=== PATIENT | male | born 1950 | race Caucasian/White ===

== ENCOUNTER 2021-05-04 12:28 | Observation (INO) ==
--- NOTE | 2021-05-04 12:50 | Emergency Department Note ---
History of Present Illness General Chief complaint: Chest Pain Stated complaint: CHEST PAIN, LEFT ARM PAIN, HEADACHE Time Seen by Provider: 05/04/21 12:39 History of Present Illness This is a 71-year-old male that presents to the emergency department via private vehicle accompanied by with complaints of "chest pain, arm pain, headache". The patient notes that earlier today just before noon time he was returning from the store where he was buying lottery tickets. Upon returning home he notes that his left arm went "numb" and he developed a headache followed by left-sided chest pain. When describing the numbness in the left arm he notes it is more of an ache sensation and it was not truly numb. He did not have any movement issues or weakness. No speech troubles. He states that the episode lasted maybe 10 minutes and much of his symptoms have resolved except he is now left with a 2/10 left-sided chest pain. Chest pain is much improved compared to earlier today. He notes a history of double bypass in 2000 performed at [facility]. No [place] history. He does note a history of diabetes type 2, hypertension, hyperlipidemia. He did have a baby aspirin this morning. He denies any fevers or chills. Home Medications Medication Instructions Recorded Confirmed Type amlodipine 5 mg tablet 5 mg PO QAM 06/17/18 05/04/21 History aspirin 81 mg tablet,delayed 81 mg PO QAM 06/17/18 05/04/21 History release atenolol 25 mg tablet 25 mg PO QAM 06/17/18 05/04/21 History clonazepam 1 mg tablet 1 mg PO QPM 06/17/18 05/04/21 History glipizide 5 mg tablet 5 mg PO BID 06/17/18 05/04/21 History lisinopril 5 mg tablet 5 mg PO QAM 06/17/18 05/04/21 History metformin 1,000 mg tablet 1,000 mg PO BID 06/17/18 05/04/21 History rosuvastatin 20 mg tablet 20 mg PO QAM 06/17/18 05/04/21 History empagliflozin 25 mg tablet 25 mg PO QAM 05/04/21 05/04/21 History levothyroxine 25 mcg tablet 25 mcg PO DAILYBB 05/04/21 05/04/21 History Allergies Allergy/AdvReac Type Severity Reaction Status Date / Time oxycodone [From OxyContin] AdvReac Unknown Unverified 05/04/21 13:19 Past Med/Surg History Medical History (Updated 05/04/21 @ 17:54 by Andi Fontana PA-C) Diabetes HTN (hypertension) Surgical History Hx of CABG Social History Smoking Status: Never smoker Hx Alcohol Use: No marital status: current occupational status: retired Feels Safe at Home: Yes Review of Systems A total of 10 systems reviewed and were otherwise negative Physical Exam Vital Signs Vital Signs - 24 hr 05/04/21 12:31 05/04/21 13:04 05/04/21 13:22 Temperature 36.2 C L Temperature Source Temporal Artery Scan Pulse Rate 81 60 Pulse Rate from SpO2 Sensor Respiratory Rate 18 18 Respiratory Effort / Characteristics Non-Labored Respiratory Depth Normal Respiratory Pattern Regular Blood Pressure 174/81 H 167/73 H Blood Pressure Mean 112 104 Blood Pressure Position Sitting Pulse Oximetry 95 96 Oxygen Delivery Method Room Air Room Air Room Air Oxygen Flow Rate 0 Fraction of Inspired Oxygen 95 Sepsis Recent Fever Within 48 Hours No Sepsis New/Unexplained Change in Mental Status No Sepsis Action Taken by Nursing No Action Required 05/04/21 13:30 Temperature Temperature Source Pulse Rate 62 Pulse Rate from SpO2 Sensor 62 Respiratory Rate 16 Respiratory Effort / Characteristics Respiratory Depth Respiratory Pattern Blood Pressure 123/65 Blood Pressure Mean 84 Blood Pressure Position Pulse Oximetry 93 Oxygen Delivery Method Oxygen Flow Rate Fraction of Inspired Oxygen Sepsis Recent Fever Within 48 Hours Sepsis New/Unexplained Change in Mental Status Sepsis Action Taken by Nursing VITAL SIGNS - Vital signs and nursing notes were reviewed. Hypertensive, otherwi se stable. GENERAL - 71-year-old male appearing his stated age who is in no acute distress. Communicates well with provider and answers questions appropriately. SKIN - Without rashes. HEAD - NC/AT. EYES - PERRL with EOMI bilaterally. Sclera anicteric. EARS - No deformities of external structures noted on gross examination bilaterally. No pain elicited with palpation of the tragus bilaterally. External auditory canals without discharge or otorrhea. Tympanic membranes pearly pritchett without retraction or bulging. No fluid or purulent material visualized behind the TM. Handle of malleus, umbo, cone of light, pars tensa/flaccid all easily visualized. NOSE - Midline and without cyanosis. No epistaxis or purulent drainage noted. Septum midline without deviation or septal hematoma noted. MOUTH/OROPHARYNX - Without perioral cyanosis. NECK - Neck with FROM. No nuchal rigidity. LUNGS - Chest wall symmetric without accessory muscle use, intercostals retractions, or central cyanosis. Normal vesicular breath sounds CTA B/L. No wheezes, rales, or rhonchi appreciated. CARDIAC - RRR with S1/S2. No murmur, rubs, or gallops appreciated. ABDOMEN - Abdominal contour normal without pulsations or visible masses. BS normoactive all four quadrants. No tenderness, palpable masses, hepatosplenomegaly, or ascites noted. EXTREMITIES - No clubbing or peripheral cyanosis. +5/5 strength noted in UE/LE bilaterally. No deficits or weakness. NEUROLOGIC - Cranial nerves II through XII grossly intact. PSYCH - A&Ox3 and cooperates fully with examiner. Pt is very pleasant and interacts well with examiner. Course Administered Medications Insulin Aspart (Insulin Aspart Per Unit) 0 units SC ACHS [facility] Stop: 06/03/21 16:29 Last Admin: 05/04/21 18:03 Dose: Not Given Documented by: [id number] Cosigned by: [id number] Discontinued Medications Aspirin (Aspirin Chew 324 Mg) 243 mg PO NOW STA Stop: 05/04/21 12:53 Last Admin: 05/04/21 13:18 Dose: 243 mg Documented by: [id number] Nitroglycerin (Nitroglycerin Sl 0.4 Mg/Tab Tab) 0.4 mg SL NOW STA Stop: 05/04/21 12:53 Last Admin: 05/04/21 13:18 Dose: 0.4 mg Documented by: [id number] Medical Decision Making Laboratory Data Result diagrams: 05/04/21 13:07 05/04/21 13:07 Lab Results 05/04/21 05/04/21 05/04/21 Range/Units 13:07 13:07 13:07 WBC 8.10 (4.8-10.8) K/uL RBC 5.08 (4.7-6.1) M/uL Hgb 15.5 (14.0-18.0) g/dL Hct 46.4 (42-52) % MCV 91.3 (80-100) fL MCH 30.5 (25-34) pg MCHC 33.4 (32-36) g/dL RDW Std Deviation 43.6 (36.4-46.3) fL RDW Coeff of Elly 13.1 (11.5-14.5) % Plt Count 214 (130-400) K/uL MPV 10.1 (7.4-10.4) fL Immature Gran % (Auto) 0.2 % Neut % (Auto) 65.6 % Lymph % (Auto) 22.8 % Apache % (Auto) 9.3 % Eos % (Auto) 1.9 % Baso % (Auto) 0.2 % Neut # (Auto) 5.31 (1.4-6.5) K/uL Lymph # (Auto) 1.85 (1.2-3.4) K/uL Apache # (Auto) 0.75 H (0.11-0.59) K/uL Eos # (Auto) 0.15 (0-0.5) K/uL Baso # (Auto) 0.02 (0-0.2) K/uL Immature Gran # (Auto) 0.02 (0.00-0.02) K/uL PT 9.8 (9.0-12.0) Seconds INR 1.0 (0.9-1.1) APTT 24.6 (21.0-31.0) Seconds PTT Ratio 0.9 Sodium 138 (136-145) mmol/L Potassium 4.0 (3.5-5.1) mmol/L Chloride 106 (98-107) mmol/L Carbon Dioxide 24 (21-32) mmol/L Anion Gap 8.0 (3-11) BUN 17 (7-18) mg/dl Creatinine 1.22 (0.6-1.4) mg/dl Est Cr Clr Drug Dosing 53.0 ml/min Est GFR ( Amer) 68.2 ml/min Est GFR (Non-Af Amer) 58.9 ml/min BUN/Creatinine Ratio 13.8 (10-20) Glucose 184 H (70-99) mg/dl Calcium 9.4 (8.5-10.1) mg/dl Total Bilirubin 0.3 (0.2-1) mg/dl AST 17 (15-37) U/L ALT 22 (12-78) Alkaline Phosphatase 78 (45-117) U/L Troponin I < 0.015 (0-0.045) ng/ml Total Protein 8.0 (6.4-8.2) gm/dl Albumin 4.0 (3.4-5.0) gm/dl Globulin 4.0 (2.5-4.0) gm/dl Albumin/Globulin Ratio 1.0 (0.9-2) Lipase 201 (73-393) U/L TSH 2.920 (0.300-4.500) uIu/ml SARS-CoV-2, RNA, NAAT (NEGATIVE) 05/04/21 Range/Units 13:09 WBC (4.8-10.8) K/uL RBC (4.7-6.1) M/uL Hgb (14.0-18.0) g/dL Hct (42-52) % MCV (80-100) fL MCH (25-34) pg MCHC (32-36) g/dL RDW Std Deviation (36.4-46.3) fL RDW Coeff of Elly (11.5-14.5) % Plt Count (130-400) K/uL MPV (7.4-10.4) fL Immature Gran % (Auto) % Neut % (Auto) % Lymph % (Auto) % [place] % (Auto) % Eos % (Auto) % Baso % (Auto) % Neut # (Auto) (1.4-6.5) K/uL Lymph # (Auto) (1.2-3.4) K/uL Apache # (Auto) (0.11-0.59) K/uL Eos # (Auto) (0-0.5) K/uL Baso # (Auto) (0-0.2) K/uL Immature Gran # (Auto) (0.00-0.02) K/uL PT (9.0-12.0) Seconds INR (0.9-1.1) APTT (21.0-31.0) Seconds PTT Ratio Sodium (136-145) mmol/L Potassium (3.5-5.1) mmol/L Chloride (98-107) mmol/L Carbon Dioxide (21-32) mmol/L Anion Gap (3-11) BUN (7-18) mg/dl Creatinine (0.6-1.4) mg/dl Est Cr Clr Drug Dosing ml/min Est GFR ( Amer) ml/min Est GFR (Non-Af Amer) ml/min BUN/Creatinine Ratio (10-20) Glucose (70-99) mg/dl Calcium (8.5-10.1) mg/dl Total Bilirubin (0.2-1) mg/dl AST (15-37) U/L ALT (12-78) Alkaline Phosphatase (45-117) U/L Troponin I (0-0.045) ng/ml Total Protein (6.4-8.2) gm/dl Albumin (3.4-5.0) gm/dl Globulin (2.5-4.0) gm/dl Albumin/Globulin Ratio (0.9-2) Lipase (73-393) U/L TSH (0.300-4.500) uIu/ml SARS-CoV-2, RNA, NAAT NEGATIVE (NEGATIVE) Imaging Data Radiologist's Impression: Chest X-Ray 05/04/21 12:48 XR chest 1V portable CLINICAL HISTORY: Atypical chest pain TECHNIQUE: Single frontal radiograph of the chest was obtained. Comparison: Comparison is made to rib radiographs 06/17/2018 FINDINGS: Stable median sternotomy wires. The cardiomediastinal silhouette is normal. The lungs are clear. No evidence of pleural effusion or pneumothorax. IMPRESSION: No acute chest disease. ACT 112: Negative or not required by law. Electronically signed by: Louis Ross M.D. 05/04/2021 1:47 PM MDM Narrative Patient was seen and evaluated as above in room C04. Review was performed of nursing notes and vital signs. I did review pertinent previous visits and patient history. After obtaining a thorough history and physical examination the above work up was performed. Patient presents to us today with left-sided chest pain that was also accompanied earlier today by left arm pain and a headache. Although the patient initially described the left arm sensation as a numbness, upon further clarification with the patient he described it as more of an aching sensation. With the left-sided chest pain and headache. At no point did he develop any speech trouble or weakness. He notes that there was preserved full range of motion of the left arm without any deficit. He does have a history of CABG. He follows with [facility] cardiology. 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 He notes that his symptoms have pretty much resolved at the present time other than some minor residual 2/10 left-sided chest pain. He also notes some irritation earlier today. NIH stroke scale 0. Options of care were discussed with the patient. IV access was established. Labs were drawn. Chest x-ray was ordered. EKG was performed on arrival at this time reveals normal sinus rhythm at a rate of 70 bpm. QTc 419. QRS 100. No ST elevation. Patient was given sublingual nitroglycerin and 243 mg of aspirin to total a full-strength aspirin dose noting that he did take a baby aspirin around 10:30 AM this morning. Labs reveal no leukocytosis or concerning anemia. No emergent metabolic disturbance. Troponin x1 -. Repeat troponin ordered. Covid testing negative. Chest x-ray negative. The patient does have cardiac risk factors. Benefit versus risk of inpatient management discussed. At this time it is felt that further evaluation and management the inpatient setting is warranted noting his symptoms this morning. With his comorbidities. Patient amenable to plan of care and staying in the hospital for further evaluation and management. Case also discussed with the hospitalist. Please refer to further documentation regarding his stay. At this time no indication for heparinization. Do not suspect dissection. Do not suspect PE. Do not suspect GI bleed or perforation. While in the department, I personally reevaluated the patient and the patient was found to be resting comfortably. The patient was educated upon management, educated upon todays findings/results, educated upon importance of follow up from today's visit, educated upon symptoms in which to return, had questions answered prior to discharge, verbalized understanding, and was discharged home in good condition. An order was placed for continuous cardiac monitoring. The monitor shows a rate of 63 with sinus rhythm. I attest that I have personally reviewed the patient medication list. GCS: 15 In the evaluation and treatment of this patient, the following differential di agnoses were considered: KS, ASC, Dysrhythmia, Angina, Mediastinitis, GERD, Esophagitis, PE, Pneumonia, Bronchitis, Costochondritis, Rib Fracture, Zoste, among others. Attending Attestation: I Juan Kerr MD independently saw and evaluated this patient and agree with history and physical is otherwise documented by the physician public aid eligibility assistant. See their note for full details. Patient reports L chest and arm discomfort. Cardiac risk factors. No change here with nitro. Received total for full dose ASA. EKG and troponin without acute change/elevation. Short time from initial troponin here and onset of symptoms. Pain mild. No aphasia or slurred speech noted. No chest wall tenderness. With risk factors rec observation and hospitalist contacted. Impression & Plan Chest pain Discharge Plan Visit Data Chief Complaint: Chest Pain Stated Complaint: CHEST PAIN, LEFT ARM PAIN, HEADACHE ED Provider: Juan Kerr ED Midlevel Provider: Andi Fontana Discharge Problem: Chest pain Patient Disposition: Admitted As Inpatient Condition: Good Discharge Instructions Interventions: ED Discharge Assessment Last Done: 05/04/21 15:54
[2021-05-04] MEDS ORDERED: ASPIRIN CHEW 324 MG PO STA (12:52)
[2021-05-04] MEDS ORDERED: NITROGLYCERIN SL 0.4 MG/TAB TAB SL STA (12:52)
[2021-05-04 13:17] LABS: Basophils # (auto) 0.02 K/uL (0-0.2); Basophils % (auto) 0.2 %; Eosinophils # (auto) 0.15 K/uL (0-0.5); Eosinophils % (auto) 1.9 %; Hematocrit (blood only) 46.4 % (42-52); Hemoglobin 15.5 g/dL (14.0-18.0); Immature Granulocytes # (auto) 0.02 K/uL (0.00-0.02); Immature Granulocytes % (auto) 0.2 %; Lymphocytes # (auto) 1.85 K/uL (1.2-3.4); Lymphocytes % (auto) 22.8 %; Mean Corpuscular Hemoglobin 30.5 pg (25-34); Mean Corpuscular Hgb Conc 33.4 g/dL (32-36); Mean Corpuscular Volume 91.3 fL (80-100); Mean Platelet Volume 10.1 fL (7.4-10.4); Monocytes # (auto) 0.75 K/uL (0.11-0.59); Monocytes % (auto) 9.3 %; Neutrophils # (auto) 5.31 K/uL (1.4-6.5); Neutrophils % (auto) 65.6 %; Platelet Count 214 K/uL (130-400); RDW Coefficient of Variation 13.1 % (11.5-14.5); RDW Standard Deviation 43.6 fL (36.4-46.3); Red Blood Count 5.08 M/uL (4.7-6.1)
[2021-05-04 13:26] LABS: Partial Thromboplastin Ratio 0.9; Partial Thromboplastin Time 24.6 Seconds (21.0-31.0); Prothrombin Time 9.8 Seconds (9.0-12.0)
[2021-05-04 13:47] LABS: Alanine Aminotransferase 22 (12-78); Aspartate Aminotransferase 17 U/L (15-37); BUN Creatinine Ratio 13.8 (10-20); Blood Urea Nitrogen 17 mg/dl (7-18); Calcium 9.4 mg/dl (8.5-10.1); Carbon Dioxide 24 mmol/L (21-32); Chloride 106 mmol/L (98-107); Est GFR (African American) 68.2 ml/min; Est GFR (Non-African American) 58.9 ml/min; Glucose 184 mg/dl (70-99); Lipase 201 U/L (73-393); Sodium 138 mmol/L (136-145)
--- NOTE | 2021-05-04 13:48 | XRay Report ---
XR chest 1V portable CLINICAL HISTORY: Atypical chest pain TECHNIQUE: Single frontal radiograph of the chest was obtained. Comparison: Comparison is made to rib radiographs 06/17/2018 FINDINGS: Stable median sternotomy wires. The cardiomediastinal silhouette is normal. The lungs are clear. No e vidence of pleural effusion or pneumothorax. IMPRESSION: No acute chest disease. ACT 112: Negative or not required by law. Electronically signed by: Louis Ross M.D. 05/04/2021 1:47 PM
[2021-05-04 13:58] LABS: Alkaline Phosphatase 78 U/L (45-117); Troponin I < 0.015 ng/ml (0-0.045)
--- NOTE | 2021-05-04 14:19 | History & Physical Report ---
Date of Service May 04, 2021 Assessment & Plan (1) Chest pain: Plan: - Admit to tele for observation for r/o - Trend cardiac biomarkers, initial set was negative - EKG reviewed as above - Check 2 D echo - If negative enzymes can consider a stress test as an outpatient as it is the weekend - PT/OT consulted - Consult cardiology with hx of CABG in 2000 - pt reports double bypass due to small vessels, no hx of VT. (2) HLD (hyperlipidemia): Plan: -Continue statin therapy (3) HTN (hypertension): Plan: -Can continue antihypertensives (4) Diabetes: Plan: -History of such, last A1c was 7.9 on 02/18/2021, recheck with a.m. labs for completeness -Continue Jardiance -Holding metformin and glipizide -ISS with Accu-Cheks ACHS (5) CKD (chronic kidney disease), stage III: Plan: -Chronic, stable, creatinine 1.2, appears to be at baseline (6) Hypothyroidism: Plan: -TSH 2.920, continue levothyroxine DVT PPx: - teds, scds CODE:Full code Dispo: From home, likely to remain in the hospital x 1 day and go home tomorrow History of Present Illness Chief Complaint: Chest pain Primary Care Provider: Óscar Carson MD This is a 71-year-old male with PMHx of CABG, HTN, HLD, DM type II, hypothyroidism who presents to the ER with acute onset of left-sided chest pain, left arm ache, and headache which occurred at 11:30 which lasted only a few minutes.This happened with exertion with walking. He can pinpoint the location of the pain in his left chest and it is sore to touch. Report he was shoveling snow yesterday for 30 minutes, at baseline he does not exercise routinely. He was given 234 mg of ASA ( took 81 mg earlier) in the ER and a sublingual nitro tablet. He now feels a slight headache after the nitro. He denies any current chest pain, shortness of breath, lightheadedness dizziness or palpitations. He admits to diarrhea x 4 yesterday. He previously smoked 1/2 ppd x 30 years. No longer smokes. Denies alcohol use or illicit drug use. [facility] and follows with his PCP, Dr. Carson every 6 months routinely. His is at bedside and supports the history. Allergies Allergy/AdvReac Type Severity Reaction Status Date / Time oxycodone [From OxyContin] AdvReac Unknown Unverified 05/04/21 13:19 Home Medications Medication Instructions Recorded Confirmed Type amlodipine 5 mg tablet 5 mg PO QAM 06/17/18 05/04/21 History aspirin 81 mg tablet,delayed 81 mg PO QAM 06/17/18 05/04/21 History release atenolol 25 mg tablet 25 mg PO QAM 06/17/18 05/04/21 History clonazepam 1 mg tablet 1 mg PO QPM 06/17/18 05/04/21 History glipizide 5 mg tablet 5 mg PO BID 06/17/18 05/04/21 History lisinopril 5 mg tablet 5 mg PO QAM 06/17/18 05/04/21 History metformin 1,000 mg tablet 1,000 mg PO BID 06/17/18 05/04/21 History rosuvastatin 20 mg tablet 20 mg PO QAM 06/17/18 05/04/21 History empagliflozin 25 mg tablet 25 mg PO QAM 05/04/21 05/04/21 History levothyroxine 25 mcg tablet 25 mcg PO DAILYBB 05/04/21 05/04/21 History Past Med/Surg History Medical History (Updated 05/04/21 @ 14:29 by Alina Ugalde PA-C) Diabetes HTN (hypertension) Surgical History Hx of CABG Social History Smoking Status: Never smoker Hx Alcohol Use: No marital status: current occupational status: retired Feels Safe at Home: Yes Review of Systems Review of Systems: Constitutional: No fever, sweats or chills Eyes: No diplopia, no worsening or blurred vision ENT: normal hearing, no trouble swallowing Respiratory: No cough, sputum, dyspnea at rest or on exertion Cardiovascular: As per HPI. Currently no chest pain, tightness or palpitations, Soreness over the left pectoralis major. Abdomen: No pain, nausea, vomiting, + diarrhea x 4 yesterday now resolved, no constipation Musculoskeletal: No joint pain, calf pain, swelling Neurologic: No weakness, numbness/tingling, or balance problems Psychiatric: No anxiety or depression Skin: No rash or itch Physical Exam Physical Exam: General: awake, alert, no apparent distress Head: Normocephalic, atraumatic ENT: PERRL, EOMI, no pharyngeal exudate, mucous membranes moist Chest: Clear to auscultation, on room air, no adventitious breath sounds Cardiac: Regular rate and rhythm, + left sided chest pain with palpation over pectoralis major, no murmur, no JVD, normal peripheral pulses, good capillary refill Abdominal: NABS x 4 quadrants, soft, nondistended, nontender to palpation, no rebound or guarding Extremities: Normal inspection, no peripheral edema or erythema, calfs nontender to palpation Psych: Normal mood and affect Neuro: AAO x 3, strength intact bilaterally and rated 5/5, no motor deficits, speech is clear, no peripheral sensory deficits Results & Data Results & Data ([facility]) Vital Signs (Past 12 Hours) Vital Signs Temp Pulse Resp BP Pulse Ox 05/04/21 13:30 62 16 123/65 93 05/04/21 13:04 60 18 167/73 H 96 05/04/21 12:31 36.2 C L 81 18 174/81 H 95 Laboratory Results 05/04/21 05/04/21 05/04/21 13:09 13:07 13:07 WBC RBC Hgb Hct MCV MCH MCHC RDW Std Deviation RDW Coeff of Elly Plt Count MPV Immature Gran % (Auto) Neut % (Auto) Lymph % (Auto) Sullivan % (Auto) Eos % (Auto) Baso % (Auto) Neut # (Auto) Lymph # (Auto) Sullivan # (Auto) Eos # (Auto) Baso # (Auto) Immature Gran # (Auto) PT 9.8 INR 1.0 APTT 24.6 PTT Ratio 0.9 Sodium 138 Potassium 4.0 Chloride 106 Carbon Dioxide 24 Anion Gap 8.0 BUN 17 Creatinine 1.22 Est Cr Clr Drug Dosing 53.0 Est GFR ( Amer) 68.2 Est GFR (Non-Af Amer) 58.9 BUN/Creatinine Ratio 13.8 Glucose 184 H Calcium 9.4 Total Bilirubin 0.3 AST 17 ALT 22 Alkaline Phosphatase 78 Troponin I < 0.015 Total Protein 8.0 Albumin 4.0 Globulin 4.0 Albumin/Globulin Ratio 1.0 Lipase 201 TSH 2.920 SARS-CoV-2, RNA, NAAT NEGATIVE 05/04/21 13:07 WBC 8.10 RBC 5.08 Hgb 15.5 Hct 46.4 MCV 91.3 MCH 30.5 MCHC 33.4 RDW Std Deviation 43.6 RDW Coeff of Elly 13.1 Plt Count 214 MPV 10.1 Immature Gran % (Auto) 0.2 Neut % (Auto) 65.6 Lymph % (Auto) 22.8 Sullivan % (Auto) 9.3 Eos % (Auto) 1.9 Baso % (Auto) 0.2 Neut # (Auto) 5.31 Lymph # (Auto) 1.85 Sullivan # (Auto) 0.75 H Eos # (Auto) 0.15 Baso # (Auto) 0.02 Immature Gran # (Auto) 0.02 PT INR APTT PTT Ratio Sodium Potassium Chloride Carbon Dioxide Anion Gap BUN Creatinine Est Cr Clr Drug Dosing Est GFR ( Amer) Est GFR (Non-Af Amer) BUN/Creatinine Ratio Glucose Calcium Total Bilirubin AST ALT Alkaline Phosphatase Troponin I Total Protein Albumin Globulin Albumin/Globulin Ratio Lipase TSH SARS-CoV-2, RNA, NAAT Diagnostic Findings Chest X-Ray 05/04/21 12:48 XR chest 1V portable CLINICAL HISTORY: Atypical chest pain TECHNIQUE: Single frontal radiograph of the chest was obtained. Comparison: Comparison is made to rib radiographs 06/17/2018 FINDINGS: Stable median sternotomy wires. The cardiomediastinal silhouette is normal. The lungs are clear. No evidence of pleural effusion or pneumothorax. IMPRESSION: No acute chest disease. ACT 112: Negative or not required by law. Electronically signed by: Louis Ross M.D. 05/04/2021 1:47 PM ECG Additional Comments: EKG reviewed Code Status & VTE Plan Code Status Full code - discussed with the patient at bedside Supervising Physician Co-Signing Physician Notes History and exam performed by me as detailed by Alina Ugalde PA-C Notable for 71yo M with h/o CABG who presents with left chest pain with left arm pain around 1130am. Had shoveled snow yesterday Exam notable for reproducible tenderness on left ant chest wall Labs unremarkable. 1st trop negative EKG left axis, NSR. Chest pain, atypical More likely MSK, less likely ACS However, due to risk factors and h/o CAD/CABG, will keep on tele, trend trops and monitor Continue ASA, statin. Tyelnol prn
[2021-05-04 14:22] LABS: Bilirubin,Total 0.3 mg/dl (0.2-1)
[2021-05-04] MEDS ORDERED: ACETAMINOPHEN 325 MG TAB PO PRN (15:55)
[2021-05-04] MEDS ORDERED: GLUCOSE 10 TABS/TUBE PO PRN (15:55)
[2021-05-04] MEDS ORDERED: CARBOHYDRATES FOR HYPOGLYCEMIA PO PRN (15:55)
[2021-05-04] MEDS ORDERED: GLUCOSE 40% GEL 15 GM TUBE PO PRN (15:55)
[2021-05-04] MEDS ORDERED: GLUCAGON FOR INJ 1 MG VIAL SQ PRN (15:55)
[2021-05-04] MEDS ORDERED: DEXTROSE 50% 50 ML SYRINGE IV PRN (15:55)
[2021-05-04] MEDS ORDERED: ONDANSETRON INJ 2 MG/ML 2 ML VIAL IV PRN (15:55)
[2021-05-04] MEDS: INSULIN ASPART PER UNIT SC SCH ×2 (18:03→20:42)
[2021-05-04] MEDS: clonazePAM 1 MG TAB PO SCH (23:06)
[2021-05-05] MEDS: LEVOTHYROXINE SODIUM 25 MCG TABLET PO SCH (06:30)
[2021-05-05 08:08] LABS: Hematocrit (blood only) 44.9 % (42-52); Mean Corpuscular Hemoglobin 30.4 pg (25-34); Mean Corpuscular Hgb Conc 33.4 g/dL (32-36); Mean Corpuscular Volume 90.9 fL (80-100); Mean Platelet Volume 10.2 fL (7.4-10.4); Platelet Count 197 K/uL (130-400); RDW Coefficient of Variation 13.2 % (11.5-14.5); RDW Standard Deviation 44.1 fL (36.4-46.3); Red Blood Count 4.94 M/uL (4.7-6.1); White Blood Count 7.73 K/uL (4.8-10.8)
[2021-05-05] MEDS: INSULIN ASPART PER UNIT SC SCH ×4 (08:31→20:29)
[2021-05-05 08:32] LABS: Albumin Level 3.5 gm/dl (3.4-5.0); BUN Creatinine Ratio 19.9 (10-20); Blood Urea Nitrogen 20 mg/dl (7-18); Calcium 8.9 mg/dl (8.5-10.1); Carbon Dioxide 22 mmol/L (21-32); Chloride 109 mmol/L (98-107); Creatinine Clr Calc Pharmacy 64.6 ml/min; Est GFR (African American) 86.8 ml/min; Est GFR (Non-African American) 74.9 ml/min; Glucose 134 mg/dl (70-99); Magnesium 2.2 mg/dl (1.8-2.4); Potassium 4.2 mmol/L (3.5-5.1); Sodium 139 mmol/L (136-145)
[2021-05-05] MEDS: lisinopril 5 MG TAB PO SCH (08:32)
[2021-05-05] MEDS: amLODIPine BESYLATE 5 MG TAB PO SCH (08:32)
[2021-05-05] MEDS: ATENOLOL 25 MG TABLET PO SCH (08:32)
[2021-05-05] MEDS: ASPIRIN 81 MG ECTAB PO SCH (08:32)
[2021-05-05] MEDS: ROSUVASTATIN CALCIUM 20 MG TAB PO SCH (08:32)
[2021-05-05 08:36] LABS: Alanine Aminotransferase 17 (12-78); Alkaline Phosphatase 68 U/L (45-117); Aspartate Aminotransferase 15 U/L (15-37); Bilirubin Direct < 0.1 mg/dl (0-0.2); Chol HDL Ratio 3; Cholesterol 104 mg/dl (0-200); Globulin 3.6 gm/dl (2.5-4.0); HDL Cholesterol 37 mg/dl; LDL Cholesterol Calculated 27 mg/dl; Phosphorus 3.3 mg/dl (2.5-4.9); Total Protein 7.1 gm/dl (6.4-8.2); Triglycerides 200 mg/dl (0-150); VLDL Cholesterol 40 mg/dl
[2021-05-05 09:18] LABS: Bilirubin,Total 0.4 mg/dl (0.2-1)
--- NOTE | 2021-05-05 10:56 | Cardiology Consultation ---
Date of Consultation May 05, 2021 Assessment & Plan (1) Chest pain: (2) CAD in [place] artery: (3) S/P CABG x 2: (4) HLD (hyperlipidemia): (5) HTN (hypertension): 71-year-old patient admitted with atypical chest discomfort. Cardiac enzymes undetectable. ECG without ischemic changes. A bedside 2D echocardiogram unchanged when compared to prior studies. He is pain-free since admission. No dysrhythmias on telemetry. Further restratification with exercise stress echocardiography recommended. This can be performed in the outpatient setting. Continue current cardiovascular medications as previously ordered. History of Present Illness Reason for Consultation: chest pain Requesting Physician: Dr. Paniagua Attending Physician: Kiera Granados MD History of Present Illness 71-year-old patient with a history of coronary artery disease status post co ronary artery bypass grafting x 2 in 2000 present to the emergency department with episode of chest discomfort. Patient describes an episode of left-sided soreness and tightness lasting approximately 5 minutes. Discomfort occurred at rest. Shoveling snow the day prior without exertional symptoms. Denies any palpitations, lightheadedness, or dizziness. Notes intermittent numbness of his left upper extremity. No focal weakness, slurred speech, visual changes, or dysphagia. Pain-free overnight. Currently resting comfortably. Tolerated a.m. meal. Telemetry reveals sinus rhythm and sinus bradycardia. No dysrhythmias. ECG without ischemic changes. Cardiac enzymes are undetectable. Preliminary review of 2D transthoracic echocardiogram demonstrates focal basal inferior thinning otherwise normal wall motion. Findings unchanged when compared to prior echocardiogram. Allergies Allergy/AdvReac Type Severity Reaction Status Date / Time oxycodone [From OxyContin] AdvReac Unknown Unverified 05/04/21 13:19 Home Medications Medication Instructions Recorded Confirmed Type amlodipine 5 mg tablet 5 mg PO QAM 06/17/18 05/04/21 History aspirin 81 mg tablet,delayed 81 mg PO QAM 06/17/18 05/04/21 History release atenolol 25 mg tablet 25 mg PO QAM 06/17/18 05/04/21 History clonazepam 1 mg tablet 1 mg PO QPM 06/17/18 05/04/21 History glipizide 5 mg tablet 5 mg PO BID 06/17/18 05/04/21 History lisinopril 5 mg tablet 5 mg PO QAM 06/17/18 05/04/21 History metformin 1,000 mg tablet 1,000 mg PO BID 06/17/18 05/04/21 History rosuvastatin 20 mg tablet 20 mg PO QAM 06/17/18 05/04/21 History empagliflozin 25 mg tablet 25 mg PO QAM 05/04/21 05/04/21 History levothyroxine 25 mcg tablet 25 mcg PO DAILYBB 05/04/21 05/04/21 History Patient History Medical History Diabetes HTN (hypertension) Surgical History Hx of CABG Social History Smoking Status: Never smoker Second Hand Exposure: No; Do You Dip or Chew Tobacco: No; Tobacco Cessation Education Requested by Patient: No Hx Alcohol Use: No Hx Substance Use: No Preferred Language: Thai 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 Beliefs That Will Affect Care: None marital status: Current Living Situation: Spouse current occupational status: retired Other Information That Helps Us Care for You: No Feels Safe at Home: Yes Safety Concerns: Feels Safe At This Time Assistive Devices: None Assistive Devices Comment: not here Review of Systems Review of Systems: All systems reviewed & are unremarkable except as noted in Subjective Physical Exam Constitutional: well developed and well nourished; no acute distress Respiratory: normal respiratory effort; no respiratory distress, no labored breathing and no retractions Auscultation: lungs clear to auscultation bilaterally; no crackles, no rales, no rhonchi and no wheezes Cardiovascular: Rate/Rhythm: regular rate and regular rhythm Heart Sounds: normal S1 and normal S2; no murmur Vessels: no JVD and no carotid bruit Extremities: no edema Gastrointestinal (Abdomen): Inspection/Auscultation: abdomen normal to inspection and normal bowel sounds; abdomen not distended Percussion/Palpation: abdomen soft; abdomen nontender, no guarding and abdomen not rigid Neurologic: CN's II-XI intact bilaterally and moves all extremities; no focal motor deficits Motor/Sensory: no tremor Psychiatric: A+Ox3, euthymic affect Results & Data ([facility]) Vital Signs (Past 12 Hours) Vital Signs Temp Pulse Pulse Resp BP Pulse Ox 05/05/21 08:00 51 L 05/05/21 07:30 36.9 C 60 18 127/76 99 05/05/21 04:11 36.5 C 51 L 18 131/68 95 05/05/21 00:23 56 L 05/04/21 23:49 36.7 C 52 L 18 160/76 H 96
--- NOTE | 2021-05-05 11:33 | Hospitalist Progress Note ---
Date of Service May 05, 2021 Assessment & Plan (1) Chest pain: Plan: EKG does not show ACS. Troponin trends negative. Patient pain is atypical and has some musculoskeletal component as it was reproducible on admission Echo reviewed. History of CABG in 2000 Discussed with medical technologist prn. Plan to get stress test tomorrow (2) HLD (hyperlipidemia): Plan: Continue statin therapy (3) HTN (hypertension): Plan: Can continue antihypertensives (4) Diabetes: Plan: -History of such, last A1c was 7.9 on 02/18/2021 -Continue Jardiance -Holding metformin and glipizide -ISS with Accu-Cheks ACHS (5) CKD (chronic kidney disease), stage III: Plan: Creatinine stable (6) Hypothyroidism: Plan: -TSH 2.920, continue levothyroxine DVT PPx: - teds, scds CODE:Full code Admission and Anticipated Discharge Date Admission Date: May 04, 2021 Subjective Patient seen and examined. Reports left-sided chest pain currently resolved Denies any chest pain, cough, shortness of breath, dyspnea on exertion Denies any headache, dizziness, blurry vision Denies fevers, chills, nausea vomiting Denies abdominal pain, diarrhea, dysuria, frequency or urgency Physical Exam Constitutional: + well hydrated; no acute distress Eyes: PERRL, conjunctivae normal, anicteric sclerae ENMT: external ear and nose normal, oropharynx normal Respiratory: normal respiratory effort, lungs clear to auscultation Cardiovascular: RRR, no murmur, no edema Gastrointestinal (Abdomen): normal bowel sounds, soft, nontender, no hepatosplenomegaly Musculoskeletal: no cyanosis or clubbing, extremities motor strength 5/5 Neurologic: PERRL, EOMI, accommodation nl, no face palsy, no dysarthria Psychiatric: A+Ox3, euthymic affect Results & Data Results & Data ([facility]) Vital Signs (Past 12 Hours) Vital Signs Temp Pulse Pulse Resp BP Pulse Ox 05/05/21 08:00 51 L 05/05/21 07:30 36.9 C 60 18 127/76 99 05/05/21 04:11 36.5 C 51 L 18 131/68 95 05/05/21 00:23 56 L 05/04/21 23:49 36.7 C 52 L 18 160/76 H 96 Laboratory Results Abnormal lab results 05/04/21 05/04/21 05/05/21 Range/Units 18:01 20:09 07:28 Chloride (98-107) mmol/L BUN (7-18) mg/dl Glucose (70-99) mg/dl POC Glucose 152 H 162 H 155 H (70-99) mg/dl Triglycerides (0-150) mg/dl 05/05/21 05/05/21 Range/Units 07:35 11:22 Chloride 109 H (98-107) mmol/L BUN 20 H (7-18) mg/dl Glucose 134 H (70-99) mg/dl POC Glucose 135 H (70-99) mg/dl Triglycerides 200 H (0-150) mg/dl
[2021-05-05] MEDS: clonazePAM 1 MG TAB PO SCH (20:30)
--- NOTE | 2021-05-05 21:55 | Electrocardiogram Report ---
Test Reason : Blood Pressure : / mmHG Vent. Rate : 070 BPM Atrial Rate : 070 BPM P-R Int : 188 ms QRS Dur : 100 ms QT Int : 388 ms P-R-T Axes : 029 009 029 degrees QTc Int : 419 ms Normal sinus rhythm Possible Anterior infarct , age undetermined Possible Inferior infarct Abnormal ECG No previous ECGs available Confirmed by Jose D Leong ([id number]) on 05/05/2021 9:54:45 PM Referred By: Confirmed By:Jose D Leong
[2021-05-06 05:52] LABS: Hematocrit (blood only) 46.3 % (42-52); Hemoglobin 15.1 g/dL (14.0-18.0); Mean Corpuscular Hemoglobin 29.5 pg (25-34); Mean Corpuscular Hgb Conc 32.6 g/dL (32-36); Mean Corpuscular Volume 90.4 fL (80-100); Mean Platelet Volume 9.8 fL (7.4-10.4); Platelet Count 217 K/uL (130-400); RDW Standard Deviation 43.4 fL (36.4-46.3); Red Blood Count 5.12 M/uL (4.7-6.1); White Blood Count 8.86 K/uL (4.8-10.8)
[2021-05-06] MEDS: LEVOTHYROXINE SODIUM 25 MCG TABLET PO SCH (05:55)
--- NOTE | 2021-05-06 06:04 | Electrocardiogram Report ---
Test Reason : Blood Pressure : / mmHG Vent. Rate : 051 BPM Atrial Rate : 051 BPM P-R Int : 204 ms QRS Dur : 098 ms QT Int : 452 ms P-R-T Axes : 028 008 017 degrees QTc Int : 416 ms Sinus bradycardia Otherwise normal ECG When compared with ECG of 04-MAY-2021 12:37, Borderline criteria for Anterior infarct are no longer Present Confirmed by Jose D Leong ([id number]) on 05/06/2021 6:04:35 AM Referred By: REFERRED SELF Confirmed By:Jose D Leong
[2021-05-06 06:23] LABS: Albumin Level 3.6 gm/dl (3.4-5.0); BUN Creatinine Ratio 19.3 (10-20); Calcium 8.9 mg/dl (8.5-10.1); Creatinine Clr Calc Pharmacy 48.6 ml/min; Est GFR (African American) 61.5 ml/min; Potassium 4.5 mmol/L (3.5-5.1)
[2021-05-06 06:25] LABS: Albumin Globulin Ratio 1.1 (0.9-2); Bilirubin,Total 0.4 mg/dl (0.2-1); Globulin 3.4 gm/dl (2.5-4.0)
[2021-05-06] MEDS: INSULIN ASPART PER UNIT SC SCH ×2 (07:53→11:53)
[2021-05-06] MEDS: ROSUVASTATIN CALCIUM 20 MG TAB PO SCH (08:15)
[2021-05-06] MEDS: ASPIRIN 81 MG ECTAB PO SCH (08:15)
[2021-05-06] MEDS: lisinopril 5 MG TAB PO SCH (08:15)
[2021-05-06] MEDS: amLODIPine BESYLATE 5 MG TAB PO SCH (08:15)
[2021-05-06] MEDS: ATENOLOL 25 MG TABLET PO SCH (08:30)
[2021-05-06] MEDS ORDERED: NITROGLYCERIN SL 0.4 MG/TAB TAB ONE (08:50)
--- NOTE | 2021-05-06 09:33 | Cardiology Progress Note ---
Date of Service May 06, 2021 Assessment & Plan (1) Chest pain: (2) CAD in [place] artery: (3) S/P CABG x 2: (4) HLD (hyperlipidemia): (5) HTN (hypertension): Plan: 71-year-old patient admitted with atypical chest discomfort. Cardiac enzymes undetectable. ECG without ischemic changes. A bedside 2D echocardiogram unchanged when compared to prior studies. He is pain-free since admission. Stress echo this AM. Continue current cardiovascular medications as previously ordered. Addendum: Exercise stress echo negative for inducible ischemia. Patient may be discharged home. Routine cardiology follow-up as scheduled. Admission and Anticipated Discharge Date Admission Date: May 04, 2021 Subjective Patient seen and examined at bedside. No recurrent chest or arm discomfort. Telemetry reveals sinus rhythm and sinus bradycardia. No new complaints. Review of Systems Review of Systems: All systems reviewed & are unremarkable except as noted in Subjective Physical Exam Constitutional: well developed and well nourished; no acute distress Respiratory: normal respiratory effort; no respiratory distress, no labored breathing and no retractions Auscultation: lungs clear to auscultation bilaterally; no crackles, no rales, no rhonchi and no wheezes Cardiovascular: Rate/Rhythm: regular rate and regular rhythm Heart Sounds: normal S1 and normal S2; no murmur Vessels: no JVD and no carotid bruit Extremities: no edema Gastrointestinal (Abdomen): Inspection/Auscultation: abdomen normal to inspection and normal bowel sounds; abdomen not distended Percussion/Palpation: abdomen soft; abdomen nontender, no guarding and abdomen not rigid Neurologic: CN's II-XI intact bilaterally and moves all extremities; no focal motor deficits Motor/Sensory: no tremor Psychiatric: A+Ox3, euthymic affect Results & Data ([facility]) Vital Signs (Past 12 Hours) Vital Signs Temp Pulse Pulse Resp BP Pulse Ox 05/06/21 08:12 36.6 C 52 L 18 154/74 H 95 05/06/21 07:22 54 L 05/06/21 03:42 36.6 C 59 L 18 116/66 95 05/05/21 23:45 36.3 C L 61 18 106/60 97
--- NOTE | 2021-05-06 12:57 | Discharge Summary ---
Date of Service May 06, 2021 Admission HPI Per Admitting Provider This is a 71-year-old male with PMHx of CABG, HTN, HLD, DM type II, hypothyroidism who presents to the ER with acute onset of left-sided chest pain, left arm ache, and headache which occurred at 11:30 which lasted only a few minutes.This happened with exertion with walking. He can pinpoint the location of the pain in his left chest and it is sore to touch. Report he was shoveling snow yesterday for 30 minutes, at baseline he does not exercise routinely. He was given 234 mg of ASA ( took 81 mg earlier) in the ER and a sublingual nitro tablet. He now feels a slight headache after the nitro. He denies any current chest pain, shortness of breath, lightheadedness dizziness or palpitations. He admits to diarrhea x 4 yesterday. He previously smoked 1/2 ppd x 30 years. No longer smokes. Denies alcohol use o r illicit drug use. [facility] and follows with his PCP, Dr. Carson every 6 months routinely. His is at bedside and supports the history. Admission Exam Per Admitting Provider General: awake, alert, no apparent distress Head: Normocephalic, atraumatic ENT: PERRL, EOMI, no pharyngeal exudate, mucous membranes moist Chest: Clear to auscultation, on room air, no adventitious breath sounds Cardiac: Regular rate and rhythm, + left sided chest pain with palpation over pectoralis major, no murmur, no JVD, normal peripheral pulses, good capillary refill Abdominal: NABS x 4 quadrants, soft, nondistended, nontender to palpation, no rebound or guarding Extremities: Normal inspection, no peripheral edema or erythema, calfs nontender to palpation Psych: Normal mood and affect Neuro: AAO x 3, strength intact bilaterally and rated 5/5, no motor deficits, speech is clear, no peripheral sensory deficits Principal Diagnosis Chest pain, atypical Discharge Exam Constitutional + well hydrated; no acute distress Eyes PERRL, conjunctivae normal, anicteric sclerae ENMT external ear and nose normal, oropharynx normal Respiratory normal respiratory effort, lungs clear to auscultation Cardiovascular RRR, no murmur, no edema Gastrointestinal (Abdomen) normal bowel sounds, soft, nontender, no hepatosplenomegaly Musculoskeletal no cyanosis or clubbing, extremities motor strength 5/5 Neurologic PERRL, EOMI, accommodation nl, no face palsy, no dysarthria Psychiatric A+Ox3, euthymic affect Discharge Data Allergies Allergy/AdvReac Type Severity Reaction Status Date / Time oxycodone [From OxyContin] AdvReac Unknown Unverified 05/04/21 13:19 Consultations 05/04/21 14:13 ED Decision to Admit Stat 05/04/21 15:06 Consult Cardiology Routine Hospital Course (1) Chest pain: EKG does not show ACS. Troponin trends negative. Patient pain is atypical and has some musculoskeletal component as it was reproducible on admission Echo reviewed. EF 60-65%, septal motion consistent with post op state, focal thinning and akinesis of base of inferior wall. Mild aortic regurgitation History of CABG in 2000 Had stress test which was negative for ischemia (2) HLD (hyperlipidemia): Continue statin therapy (3) HTN (hypertension): Can continue antihypertensives (4) Diabetes: History of such, last A1c was 7.9 on 02/18/2021 Continue home antidiabetic (5) CKD (chronic kidney disease), stage III: (6) Hypothyroidism: -TSH 2.920, continue levothyroxine Total Time Total Time Spent Total Time Spent (In Minutes): 35 Total Time Includes: Examination of the Patient, Discharge Planning, Medication Reconciliation and Communication With Other Providers Discharge Plan Discharge Items Patient Disposition: Home - Self-Care Reason For Visit: CHEST PAIN Discharge Diagnosis: Chest pain Condition on Discharge: Good Activity: Resume your previous activity Non-emergency contact: Primary Care Provider and Solar Installer Call non-emergency contact if: you have any medication questions Follow-up/Referrals: Óscar Carson MD [Primary Care Provider] - 05/13/21 11:20 am (Date & Time 05/13/2021 11:20 AM Provider Óscar Carson MD [facility] ) Diet: Carb Consistent or DM2 and Heart Healthy Addtl Attending Provider Instructions: Mr Wilkes. You came to the hospital with chest pain. You were extensively evaluated and had a stress test with did not show chest pain was heart related. Your symptoms improved. You are being discharged home to continue your home medications. Please continue to follow up with your Primary Doctor and Solar Installer. It was a pleasure taking care of you. Pending Studies at Discharge: No Stand-Alone Forms: My [facility], Smoking Cessation Medications and DC Order Prescriptions: Continued clonazepam 1 mg tablet 1 mg PO QPM RF: 0 atenolol 25 mg tablet 25 mg PO QAM RF: 0 amlodipine 5 mg tablet 5 mg PO QAM RF: 0 aspirin 81 mg Tablet,Delayed Release (Dr/Ec) 81 mg PO QAM RF: 0 metformin 1,000 mg tablet 1,000 mg PO BID RF: 0 lisinopril 5 mg tablet 5 mg PO QAM RF: 0 glipizide 5 mg tablet 5 mg PO BID RF: 0 rosuvastatin 20 mg tablet 20 mg PO QAM RF: 0 levothyroxine 25 mcg Tablet 25 mcg PO DAILYBB RF: 0 empagliflozin 25 mg Tablet 25 mg PO QAM RF: 0 Discharge Orders: Discharge Order (Routine); Ordered 05/06/21 Ordered By: Kiera Bennett/Other Patient Handouts: Diabetes and Heart Disease Admission Data Admit Date/Time: 05/04/21 14:23 Attending Provider: Kiera Granados I. Admit Provider: Kiera Granados I. Primary Care Provider: Óscar Carson Other Providers: Isaiah Kathleen Valentine I. Other Interventions: Discharge Summary Assessment (RN) Last Done: 05/06/21 12:58
== END 2021-05-06 14:40 | disposition home or self-care (01) ==
LOC: EDINP 12:28 → ED 12:28 → 2S 15:54